=== PATIENT | female | born 1990 | race Two or more races ===

== ENCOUNTER 2017-03-14 18:23 | Emergency (ER) | payer MEDICAID ==
[~2017-03-14] VITALS: Ht 149.9 cm; Wt 65.8 kg
[2017-03-14] MEDS ORDERED: HYDROcodone-ACET 5/325MG TAB PO ONE (22:30)
[2017-03-14 22:36] LABS: Basophils # (auto) 0 uL; Basophils % (auto) 0.1 % (0.0-2.0); CONDITION Y; Eosinophils # (auto) 0 uL; Hematocrit 44.8 % (36.0-46.0); Hemoglobin 15.1 g/dL (12.2-16.2); Lymphocytes # (auto) 1.9 uL; Lymphocytes % (auto) 10.7 % (10.0-50.0); Mean Corpuscular Hemoglobin 29.3 pg (28.0-32.0); Mean Corpuscular Hgb Conc. 33.8 g/dL (32.0-36.0); Mean Corpuscular Volume 86.8 fL (80.0-100.0); Mean Platelet Volume 8.7 fL (7.4-10.4); Monocytes # (auto) 1.1 uL; Monocytes % (auto) 6.2 % (0.0-12.0); Neutrophils # (auto) 14.5 uL; Platelet Count (auto) 265 10^3/uL (140-450); Red Cell Distribution Width 13.4 % (11.6-16.0); White Blood Cell 17.4 10^3/uL (4.4-10.8)
[2017-03-15] MEDS ORDERED: CLINDAMYCIN 600MG IV 50 ML IV ONE
[2017-03-15 03:12] VITALS: BP 138/83
== END 2017-03-15 03:15 | disposition home or self-care (01) ==
LOC: ER 18:31
DX: H70.91 Unspecified mastoiditis, right ear (principal); H60.91 Unspecified otitis externa, right ear
CPT/HCPCS: 36415; 70480; 83605; 85025; 87040; 96365; 99285; J3490; J7030